=== PATIENT | male | born 2005 | race Two or more races ===

== ENCOUNTER 2024-02-08 14:19 | Emergency (ER) | payer MEDICAID ==
[~2024-02-08] VITALS: Ht 182.9 cm; Wt 135.4 kg
[2024-02-08 14:51] VITALS: BP 131/87; PULSE 93; RESP 18; TEMP 98.7; O2SAT 96
[2024-02-08 14:51] LABS: Urine Bacteria None Seen /hpf (None Seen)
[2024-02-08 15:07] LABS: Urine Blood Negative /uL (Negative); Urine Clarity Clear (Clear); Urine Color Yellow (Yellow); Urine Mucus FEW (None Seen); Urine Protein, UAD 1+ (Negative); Urine Specific Gravity 1.032 (1.001-1.035); Urine Urobilinogen 2 mg/dL (Negative); Urine WBC 1 /hpf (0 - 3)
[2024-02-08] MEDS ORDERED: PROM1SOL4 PO (15:32)
[2024-02-08] MEDS ORDERED: METH4PAK PO (15:32)
[2024-02-08] MEDS ORDERED: IBUP-1454 PO (15:32)
== END 2024-02-08 15:38 | disposition home or self-care (01) ==
LOC: ER 14:19
DX: M54.16 Radiculopathy, lumbar region (principal)
CPT/HCPCS: 81001